=== PATIENT | female | born 1970 | race Caucasian/White ===

== ENCOUNTER → 2017-09-25 | Outpatient (REF) | LOC: WSC 08:00 → WSPT 08:30 → EDSTATUS 08:30 | DX: Z47.89 Encounter for other orthopedic aftercare (principal) ==

== ENCOUNTER 2023-10-29 09:43 | Emergency (ER) | payer OTHER ==
[~2023-10-29] VITALS: Ht 162.6 cm; Wt 80.0 kg
[2023-10-29 09:47] VITALS: TEMP 98.2
[2023-10-29] MEDS ORDERED: EFFEXOR-XR150 MG PO (09:53)
[2023-10-29] MEDS ORDERED: FLAGYL500 MG PO (09:54)
[2023-10-29] MEDS ORDERED: LUNESTA3 MG PO (09:54)
[2023-10-29] MEDS ORDERED: CIPRO 500MG TA500 MG PO (09:54)
[2023-10-29] MEDS ORDERED: SINEQUAN 1010 MG/CAP PO (09:54)
[2023-10-29 10:45] VITALS: BP 126/84; PULSE 74
== END 2023-10-29 10:47 | disposition home or self-care (01) ==
LOC: COL.ER 09:43
DX: K91.872 Postprocedural seroma of a digestive system organ or structure following a digestive system procedure (principal)